=== PATIENT | female | born 1945 | race American Indian/Alaskan Native ===

== ENCOUNTER 2020-10-23 15:17 | Emergency (ER) | payer MEDICARE ==
--- NOTE | 2020-10-23 15:48 | Emergency Department Report ---
ED Abdominal Pain HPI - General Chief Complaint: Abdominal Pain Stated Complaint: SENT BACK BY URGENT CARE Time Seen by Provider: 10/23/20 15:37 Source: patient Mode of arrival: Ambulatory Limitations: No Limitations - History of Present Illness Initial Comments: 75-year-old F [place] female past medical history of hypertension presents emerged department complaining of a few day history of left upper quadrant abdominal pain for which she was seen at your local urgent care just prior to arrival to the ED. She was advised to come to the [facility] department to be evaluated for diverticulitis states has been having sharp episodic left upper quadrant abdominal pain which appears to be worsened with meals. She reports no shortness of breath, no hemoptysis, hematemesis hematochezia no diarrhea no constipation no fevers chills or sweats. MD Complaint: abdominal pain Location: [facility] Radiation: none Severity: mild Quality: aching, sharp Consistency: intermittent Context: foreign travel Associated Symptoms: denies other symptoms. denies: constipation, dysuria, hematemesis, hematuria, anorexia - Related Data Home Medications Medication Instructions Recorded Confirmed Last Taken Pravastatin 40 mg PO QHS 10/04/20 10/04/20 Unknown amLODIPine 10 mg PO DAILY 10/04/20 10/04/20 Unknown lisinopriL [Lisinopril] 20 mg PO DAILY 10/04/20 10/04/20 Unknown Previous Rx's Medication Instructions Recorded Last Taken Type Dexamethasone [Decadron] 6 mg PO DAILY 7 Days #7 tablet 10/07/20 Unknown Rx Allergies Allergy/AdvReac Type Severity Reaction Status Date / Time No Known Allergies Allergy Verified 10/23/20 15:28 ED Review of Systems ROS: Stated complaint: SENT BACK BY URGENT CARE Other details as noted in HPI Comment: All other systems reviewed and negative ED Past Medical Hx - Past Medical History Hx Hypertension: Yes Additional medical history: Glaucoma, Hyperlipidemia - Surgical History Additional Surgical History: D&C - Social History Smoking Status: Never Smoker Substance Use Type: None - Medications Home Medications: Home Medications Medication Instructions Recorded Confirmed Last Taken Type Pravastatin 40 mg PO QHS 10/04/20 10/04/20 Unknown History amLODIPine 10 mg PO DAILY 10/04/20 10/04/20 Unknown History lisinopriL [Lisinopril] 20 mg PO DAILY 10/04/20 10/04/20 Unknown History Dexamethasone [Decadron] 6 mg PO DAILY 7 Days #7 tablet 10/07/20 Unknown Rx ED Physical Exam - General Limitations: No Limitations General appearance: alert, in no apparent distress - Head Head exam: Present: atraumatic, normocephalic - Eye Eye exam: Present: normal appearance, PERRL, EOMI Pupils: Present: normal accommodation - ENT ENT exam: Present: mucous membranes moist - Neck Neck exam: Present: normal inspection - Respiratory Respiratory exam: Present: normal lung sounds bilaterally. Absent: respiratory distress - Cardiovascular Cardiovascular Exam: Present: regular rate, normal rhythm. Absent: systolic murmur, diastolic murmur, rubs, gallop - GI/Abdominal GI/Abdominal exam: Present: soft, tenderness, normal bowel sounds, other (To the left lower quadrant and left hypochondriac region. No rebound no lifts heaves or thrills. No Rovsing, no Stern Lam, no tenderness at McBurney's. No distention is noted). Absent: guarding, rebound, rigid - Extremities Exam Extremities exam: Present: normal inspection, full ROM, normal capillary refill - Back Exam Back exam: Present: normal inspection. Absent: CVA tenderness (R), CVA tend erness (L) - Neurological Exam Neurological exam: Present: alert, oriented X3, CN II-XII intact - Psychiatric Psychiatric exam: Present: normal affect, normal mood. Absent: agitated, anxious, flat affect - Skin Skin exam: Present: warm, dry, intact, normal color. Absent: rash ED Medical Decision Making - Lab Data Result diagrams: 10/23/20 15:50 10/23/20 15:50 - Radiology Data Radiology results: report reviewed [address] [place] [id number] Cat Scan Report Signed Patient: YANIV DOUGLAS MR#: [id number] : 1945 Acct:[id number] Age/Sex: 75 / F ADM Date: 10/23/20 Loc: ED Attending Dr: Ordering Physician: LAXMI MCKAY Date of Service: 10/23/20 Procedure(s): CT abdomen pelvis w con Accession Number(s): [id number] cc: LAXMI MCKAY CT abdomen pelvis w con INDICATION: Abdominal Pain. COMPARISON: None TECHNIQUE: Abdominal and pelvic CT exam performed. All CT scans at this location are performed using CT dose reduction for ALARA by means of automated exposure control. FINDINGS: CT ABDOMEN and PELVIS: Lung Bases: Small left effusion. Consolidation seen in the lung bases most likely related atelectasis. Liver: No significant abnormality. Biliary: Gallstones without gallbladder wall thickening or pericholecystic fluid. Spleen: No significant abnormality. Pancreas: No significant abnormality. Adrenals: No significant abnormality. Kidneys: No significant abnormality. Small bilateral renal cysts. Lymphatics: No lymphadenopathy. Vasculature: No significant abnormality. Bowel: No significant abnormality. Normal appendix. Pelvis: Small quantity of free fluid in the pelvis. There is a moderate-sized posterior fibroid measuring approximately 6 cm. Osseous Structures: No aggressive osseous lesion. Sclerotic left iliac bone lesion most likely represents a large bone island. Additional Findings: None IMPRESSION: 1. No acute abnormality. 2. Cholelithiasis. 3. Small left pleural effusion with basilar atelectasis. Signer Name: Sergio Acevedo MD Signed: 10/23/2020 9:04 PM Workstation Name: [id number] Transcribed By: CS Dictated By: Sergio Acevedo MD Electronically Authenticated By: Sergio Acevedo MD Signed Date/Time: 10/23/202103 DD/ 00 TD/TT: - Medical Decision Making This patient presents with abdominal pain of unclear etiology. A CT scan was performed to evaluate for potential causes of the abdominal pain, however, neither the clinical exam nor the CT has identified an emergent etiology for the abdominal pain. Specifically, given the benign exam, the laboratory studies, and unremarkable CT, I have a very low suspicion for appendicitis, ischemic bowel, bowel perforation, or any other life threatening disease. I reviewed the urinalysis from the clinic while you were just prior to your labs emergency department which was not indicative or suggestive of a urinary tract infection. I have discussed with the patient the level of uncertainty with undifferentiated abdominal pain and clearly explained the need to follow-up as noted on the d ischarge instructions, or return to the Emergency Department immediately if the pain worsens, develops fever, persistent and uncontrollable vomiting, or for any new symptoms or concerns. Critical care attestation.: If time is entered above; I have spent that time in minutes in the direct care of this critically ill patient, excluding procedure time. ED Disposition Clinical Impression: Abdominal pain, Uterine fibroid, Cholelithiasis without cholecystitis Disposition: TO HOME OR SELFCARE Is pt being admited?: No Does the pt Need Aspirin: No Condition: Stable Instructions: Abdominal Pain (ED), Cholelithiasis, Abdominal Pain, Adult, Uterine Fibroids Referrals: PRIMARY CARE, [Primary Care Provider] - 3-5 Days [facility] [Provider Group] - 3-5 Days
[2020-10-23 17:19] LABS: Hematocrit 34.3 % (30.3-42.9); Hemoglobin 11.4 gm/dl (10.1-14.3); Mean Corpuscular HGB Conc 33 % (30-34); Mean Corpuscular Volume 85 fl (79-97); Platelet Count 155 K/mm3 (140-440); Red Blood Count 4.06 M/mm3 (3.65-5.03); Red Cell Distribution Width 14.5 % (13.2-15.2)
[2020-10-23 17:28] LABS: Albumin 3.2 g/dL (3.9-5); Calcium 8.2 mg/dL (8.4-10.2)
[2020-10-23 17:43] LABS: Basophils % (Auto) 0.2 % (0.0-1.8); Eosinophils # (Auto) 0.1 K/mm3 (0.0-0.4); Eosinophils % (Auto) 0.5 % (0.0-4.3); Lymphocytes # (Auto) 0.9 K/mm3 (1.2-5.4); Lymphocytes % (Auto) 6.3 % (13.4-35.0); Monocytes # (Auto) 0.9 K/mm3 (0.0-0.8); Monocytes % (Auto) 6.2 % (0.0-7.3)
--- NOTE | 2020-10-23 21:08 | Cat Scan Report ---
CT abdomen pelvis w con INDICATION: Abdominal Pain. COMPARISON: None TECHNIQUE: Abdominal and pelvic CT exam performed. All CT scans at this location are performed using CT dose reduction for ALARA by means of automated exposure control. FINDINGS: CT ABDOMEN and PELVIS: Lung Bases: Small left effusion. Consolidation seen in the lung bases most likely related atelectasis . Liver: No significant abnormality. Biliary: Gallstones without gallbladder wall thickening or pericholecystic fluid. Spleen: No significant abnormality. Pancreas: No significant abnormality. Adrenals: No significant abnormality. Kidneys: No significant abnormality. Small bilateral renal cysts. Lymphatics: No lymphadenopathy. Vasculature: No significant abnormality. Bowel: No significant abnormality. Normal appendix. Pelvis: Small quantity of free fluid in the pelvis. There is a moderate-sized posterior fibroid measu ring approximately 6 cm. Osseous Structures: No aggressive osseous lesion. Sclerotic left iliac bone lesion most likely repres ents a large bone island. Additional Findings: None IMPRESSION: 1. No acute abnormality. 2. Cholelithiasis. 3. Small left pleural effusion with basilar atelectasis. Signer Name: Sergio Acevedo MD Signed: 10/23/2020 9:04 PM Workstation Name: [id number]
== END 2020-10-23 22:15 | disposition home or self-care (01) ==
LOC: ED 15:17
DX: K80.20 Calculus of gallbladder without cholecystitis without obstruction (principal); D25.9 Leiomyoma of uterus, unspecified; R10.12 Left upper quadrant pain; I10 Essential (primary) hypertension; Z98.890 Other specified postprocedural states; Z79.899 Other long term (current) drug therapy
CPT/HCPCS: 36415; 74177; 80053; 83690; 85025; 99283; Q9967

== ENCOUNTER 2021-09-19 12:29 | Outpatient (CLI) | payer MEDICARE ==
--- NOTE | 2021-09-19 15:14 | XRay Report ---
CHEST 2 VIEWS INDICATION: FEVER/ABDOMINAL PAIN. COMPARISON: 10/03/2020 FINDINGS: Support devices: None. Heart: Heart size is within normal limits. The aorta is ectatic with calcifications. Lungs/pleura: Bibasilar opacities or atelectatic changes and small pleural effusions are identified. The upper lung zones are clear. No pneumothorax. Additional findings: None. IMPRESSION: Bibasilar opacities or atelectasis and small bilateral pleural effusions have developed since . Signer Name: Osman Mcrae Jr, MD Signed: 09/19/2021 3:10 PM Workstation Name: [id number]
== END 2021-09-19 12:30 | disposition home or self-care (01) ==
LOC: XRAY 12:29
PROVIDERS: ATTEND Internal Medicine
DX: R50.9 Fever, unspecified (principal); R10.9 Unspecified abdominal pain; I70.0 Atherosclerosis of aorta
CPT/HCPCS: 71046

== ENCOUNTER 2021-09-29 10:49 | Outpatient (CLI) | payer MEDICARE ==
--- NOTE | 2021-09-29 12:42 | Cat Scan Report ---
CT CHEST WITHOUT CONTRAST INDICATION / CLINICAL INFORMATION: ATELECTASIS. TECHNIQUE: Axial CT images were obtained through the chest without contrast. All CT scans at this location are p erformed using CT dose reduction for ALARA by means of automated exposure control. COMPARISON: None available. FINDINGS: There is increased density and atelectasis in the lower lungs. There is a large thyroid with multiple large cystic and solid nodules throughout. Atherosclerotic changes of aorta. Multiple gallstones are seen. IMPRESSION: 1. Increased densities in the lower lungs with atelectasis/infiltrates. Small effusions. 2. Thyroid is markedly enlarged with cystic and solid multinodular goiter. Thyroid ultrasound follow- up could be performed 3. Cholelithiasis Signer Name: Saud Kelly MD Signed: 09/29/2021 12:37 PM Workstation Name: [id number]
== END 2021-09-29 10:50 | disposition home or self-care (01) ==
LOC: CT 10:49
PROVIDERS: ATTEND Internal Medicine
DX: J98.11 Atelectasis (principal); J90 Pleural effusion, not elsewhere classified; I70.0 Atherosclerosis of aorta; K80.20 Calculus of gallbladder without cholecystitis without obstruction; E04.1 Nontoxic single thyroid nodule; E04.9 Nontoxic goiter, unspecified
CPT/HCPCS: 71250

== ENCOUNTER 2021-10-25 08:51 | Outpatient (CLI) | payer MEDICARE ==
--- NOTE | 2021-10-25 11:11 | Ultrasound Report ---
ULTRASOUND THYROID INDICATION / CLINICAL INFORMATION: E04.2 NONTOXIC MULTINODULAR GOITER. COMPARISON: CT chest 09/29/2021. FINDINGS: RIGHT LOBE: Size (cm) = 6.8 x 2.2 x 2.6 cm. LEFT LOBE: Size (cm) = 7.5 x 3.1 x 3.8 cm. ISTHMUS: Thickness (cm) = 2.7 cm. APPEARANCE: Heterogeneous. SMALL NODULES < 1 cm: None. NODULES >= 1 cm or SUSPICIOUS FEATURES (up to 4): Multiple thyroid nodules are noted bilaterally. - NODULE # 1 - Location: Isthmus - Maximum Size (cm): 3.4 cm - Significant Change (>= 20% in 2 dim. & inc. >= 2mm): No prior study - Composition: Mostly Solid = 2 points - Echogenicity: Hyperechoic or Isoechoic = 1 point - Shape: [id number]-envg-jqsf = 0 points - Margin: Ill-defined = 0 points - Echogenic Foci: None = 0 points - Additional Echogenic Foci: None = 0 points - Additional Findings: None. - ACR TI-RADS Score / Category = 3 points / TI-RADS 3 - NODULE # 2 - Location: Right Lower - Maximum Size (cm): 4.0 cm - Significant Change (>= 20% in 2 dim. & inc. >= 2mm): No prior study - Composition: Mostly Solid = 2 points - Echogenicity: Hyperechoic or Isoechoic = 1 point - Shape: Dixka-huzk-tqxb = 0 points - Margin: Smooth = 0 points - Echogenic Foci: None = 0 points - Additional Echogenic Foci: None = 0 points - Additional Findings: None. - ACR TI-RADS Score / Category = 3 points / TI-RADS 3 - NODULE # 3 - Location: Left Upper - Maximum Size (cm): 3.0 cm - Significant Change (>= 20% in 2 dim. & inc. >= 2mm): No prior study - Composition: Mixed cystic & solid = 1 point - Echogenicity: Hypoechoic = 2 points - Shape: [id number]-bait-xmhu = 0 points - Margin: Smooth = 0 points - Echogenic Foci: None = 0 points - Additional Echogenic Foci: None = 0 points - Additional Findings: None. - ACR TI-RADS Score / Category = 3 points / TI-RADS 3 - NODULE # 4 - Location: Left Mid - Maximum Size (cm): 1.3 cm - Significant Change (>= 20% in 2 dim. & inc. >= 2mm): No prior study - Composition: Solid = 2 points - Echogenicity: Hyperechoic or Isoechoic = 1 point - Shape: Vvwxd-fssw-njfx = 0 points - Margin: Smooth = 0 points - Echogenic Foci: Peripheral (rim) calcifications = 2 points - Additional Echogenic Foci: None = 0 points - Additional Findings: None. - ACR TI-RADS Score / Category = 5 points / TI-RADS 4 - No additional suspicious thyroid nodules. LYMPH NODES: No abnormal lymph nodes. PARATHYROID GLANDS: No abnormal parathyroid glands. ADDITIONAL FINDINGS: None. IMPRESSION: 1. Enlarged, multinodular thyroid. 2. Isthmus nodule measures 3.4 cm and is TI RADS category 3. Recommend FNA. 3. Right lower thyroid nodule measures 4.0 cm and is TI RADS category 3. Recommend FNA. 4. Left upper thyroid nodule measures 3.0 cm and is TI RADS category 3. Recommend FNA. 5. Left mid thyroid nodule measures 1.3 cm and is TI RADS category 4. Recommend follow-up ultrasound in one year. ACR TI-RADS Thyroid Nodule Recommendations TI-RADS 1 (0 pts) -- BENIGN. - No Fine Needle Aspirate biopsy (FNA) or follow-up. TI-RADS 2 (1-2 pts) -- NOT SUSPICIOUS. - No FNA or follow-up. TI-RADS 3 (3 pts) -- MILDLY SUSPICIOUS. - >= 2.5 cm: FNA. - 1.5-2.4 cm: Follow up at 1, 3, 5 years. - < 1.5 cm: No follow up. TI-RADS 4 (4-6 pts) -- MODERATELY SUSPICIOUS. - >= 1.5 cm: FNA. - 1.0-1.4 cm: Follow up at 1, 2, 3, 5 years. - < 1.0 cm: No follow up. TI-RADS 5 (7+ pts) -- HIGHLY SUSPICIOUS. - >= 1.0 cm: FNA. - 0.5-0.9 cm: Follow annually for 5 years. - 0.5 cm: No follow up. REFERENCE: ACR Thyroid Imaging, Reporting and Data System (TI-RADS): White Paper of the ACR TI-RADS C ommittee. J AM Jesi Radiol 2017;14:587-595. NOTE: Nodules < 1 cm do not typically require follow-up or FNA unless there are suspicious features. NOTE: Nodule size maximum dimension determines whether a given lesion should be biopsied or followed. NOTE: If multiple nodules meet criteria for FNA, only the two (2) most suspicious nodules should be b iopsied. In addition, FNA of any suspicious cervical nodes should be biopsied. NOTE: Predominantly Cystic nodules and Spongiform nodules, composed predominantly (>50%) of small cys tic spaces, are considered benign (TI-RADS 1) regardless of other criteria. Scribed by: Cherie Mix RDMS, VIPULT, ÓSCAR Scribed: 10/25/2021 9:46 AM I have reviewed the images, agree with this report, and edited this report as needed. Signer Name: Neal Duffy MD Signed: 10/25/2021 11:02 AM Workstation Name: [id number]
== END 2021-10-25 08:52 | disposition home or self-care (01) ==
LOC: US 08:51
PROVIDERS: ATTEND Internal Medicine
DX: E04.2 Nontoxic multinodular goiter (principal)
CPT/HCPCS: 76536